=== PATIENT | female | born 1955 | race Two or more races ===

== ENCOUNTER → 2024-03-30 | Outpatient (CLI) | payer MEDICARE, MEDICAID, SELFPAY ==
--- NOTE | 2024-03-30 13:30 | XR_ITS ---
Examination: Breast ultrasound complete, bilateral Date and time of exam: March 30, 2024 1345 hours INDICATIONS: Personal history left breast cancer lumpectomy January 2021 Technique: Real-time grayscale ultrasonographic imaging bilateral breasts, including all 4 quadrants as well as nipple retroareolar and axillary regions. Findings: Sonographic images right breast 8:00 cyst 5 x 4 mm 9:00 cyst 5 x 2 mm No solid nodules Sonographic images left breast No cystic or solid mass IMPRESSION: BI-RADS Category 2: Benign findings
--- NOTE | 2024-03-30 14:30 | XR_ITS ---
Examination: Diagnostic digital mammography, bilateral Computer aided detection 3-D breast Tomosynthesis, bilateral Date and time of exam: March 30, 2024 1423 hours Compared to mammograms dating to February 06, 2020 INDICATIONS: History left lumpectomy 2020 Technique: Nonmagnified MLO, CC views of the breasts to been obtained, reconstructed from 3-D Tomosynthesis images. R2 computer aided detection program utilized for evaluation of suspicious masses and/or abnormal calcifications. 3-D Tomosynthesis images obtained. Findings: The breasts are heterogeneously dense, which may obscure small masses Scar formation upper left breast with focal asymmetry again noted No suspicious masses Impression: BI-RADS Category 2: Benign findings Recommend yearly follow-up mammography.
== END | disposition home or self-care (01) ==
PROVIDERS: Referring Provider Advanced Practice Midwife; Visit Provider Advanced Practice Midwife
DX: R92.323 Mammographic fibroglandular density, bilateral breasts (principal); N60.01 Solitary cyst of right breast; C50.912 Malignant neoplasm of unspecified site of left female breast
CPT/HCPCS: 76641; 77062; 77066; G0279

== ENCOUNTER 2025-01-16 17:40 | Emergency (ER) | payer OTHER, MEDICAID, SELFPAY ==
[2025-01-16 17:54] VITALS: BP 145/81; PULSE 82; RESP 18; TEMP 36.9; O2SAT 97; BMI 25.2
--- NOTE | 2025-01-16 18:03 | XR_ITS ---
EXAMINATION: PA chest single view TECHNIQUE: Upright PA chest single view Date and time: January 16, 2025, 1835 hours INDICATIONS: Chest pain today. FINDINGS: Normal heart size. The lungs are clear. The osseous structures are intact. IMPRESSION: No active disease.
--- NOTE | 2025-01-16 18:03 | EDRME_ITS ---
<Statement entered by Donna Reyes MD - 01/17/25 06:48> As co-signing physician, I was present and available for consult prn. I concur with the plan and care as documented by the midlevel provider. Rapid Medical Screening Exam RME Arrival date/time: 01/16/25 17:40 Chief Complaint: Shortness of Breath/Dyspnea Vital signs: Vital Signs Temperature 98.5 F 01/16/25 17:54 Pulse Rate 82 01/16/25 17:54 Respiratory Rate 18 01/16/25 17:54 Blood Pressure 145/81 H 01/16/25 17:54 Pulse Oximetry (%) 97 01/16/25 17:54 Oxygen Delivery Method Room Air 01/16/25 17:54 RME Narrative: Left-sided chest wall pain, shortness of breath that initiated at 1700 today. Hx breast CA 2020.
--- NOTE | 2025-01-16 18:03 | EKG_ITS ---
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
--- NOTE | 2025-01-16 18:17 | PD.EDSOB ---
ED SOB =RME/HPI General Chief Complaint: Shortness of Breath/Dyspnea Stated Complaint: L) SIDE PAIN, DIFFIULTY BREATHING Arrival date/time: 01/16/25 17:40 RME / HPI RME / HPI Narrative: Left-sided chest wall pain, shortness of breath that initiated at 1700 today. Hx breast CA 2020. ------- See MDM for Dr. Matthews's HPI documentation. Related Data Home Medications ?Medication ?Instructions ?Recorded ?Confirmed carvedilol 3.125 mg tablet 3.125 mg PO BID 05/31/20 01/21/21 losartan 50 mg-hydrochlorothiazide 1 tab PO QDAY 05/31/20 01/21/21 12.5 mg tablet omeprazole 20 mg capsule,delayed 20 mg PO QDAY 05/31/20 01/21/21 release albuterol sulfate 90 mcg/actuation 2 puff inhalation Q4H PRN 01/21/21 01/21/21 aerosol inhaler (Ventolin HFA) Shortness Of Breath Or Wheezing pravastatin 20 mg tablet 20 mg PO QDAY 01/21/21 01/21/21 Allergies Allergy/AdvReac Type Severity Reaction Status Date / Time No Known Allergies Allergy Verified 01/16/25 17:45 Course Orders Category Date Time Status EKG (ED ONLY) *Do not use* NOW Care 01/16/25 18:03 Active CXR [XR chest 1V] Stat Exams 01/16/25 18:03 Ordered EKG (ED Only) Stat Exams 01/16/25 18:03 Draft BNP [B-Type Natriuretic Peptide] Stat Lab 01/16/25 18:03 Ordered CBC Stat Lab 01/16/25 18:03 Ordered CMP [Comprehensive Metabolic Panel] Stat Lab 01/16/25 18:03 Ordered Troponin I Stat Lab 01/16/25 18:03 Ordered Vital Signs Vital signs: Vital Signs Temperature 98.5 F 01/16/25 17:54 Pulse Rate 82 01/16/25 17:54 Respiratory Rate 18 01/16/25 17:54 Blood Pressure 145/81 H 01/16/25 17:54 Pulse Oximetry (%) 97 01/16/25 17:54 Oxygen Delivery Method Room Air 01/16/25 17:54 Discharge Plan Prescriptions/Referrals Prescriptions/Med Rec: No Action carvedilol 3.125 mg Tablet 3.125 mg PO BID omeprazole 20 mg Capsule,Delayed Release(Dr/Ec) 20 mg PO QDAY losartan-hydrochlorothiazide 50-12.5 mg Tablet 1 tab PO QDAY pravastatin 20 mg Tablet 20 mg PO QDAY albuterol sulfate [Ventolin HFA] 90 mcg/actuation Hfa Aerosol Inhaler 2 puff INHALATION Q4H PRN (Reason: Shortness Of Breath Or Wheezing) Patient/Caregiver Discharge Instructions Print Language: Guyanese
--- NOTE | 2025-01-16 18:27 | PD.EDSOB ---
ED SOB =RME/HPI General Chief Complaint: Shortness of Breath/Dyspnea Stated Complaint: L) SIDE PAIN, DIFFIULTY BREATHING Time Seen by Provider: 01/16/25 18:29 Arrival date/time: 01/16/25 17:40 RME / HPI RME / HPI Narrative: Left-sided chest wall pain, shortness of breath that initiated at 1700 today. Hx breast CA 2020. ------- See MDM for Dr. Matthews's HPI documentation. Related Data Home Medications ?Medication ?Instructions ?Recorded ?Confirmed carvedilol 3.125 mg tablet 3.125 mg PO BID 05/31/20 01/21/21 losartan 50 mg-hydrochlorothiazide 1 tab PO QDAY 05/31/20 01/21/21 12.5 mg tablet omeprazole 20 mg capsule,delayed 20 mg PO QDAY 05/31/20 01/21/21 release albuterol sulfate 90 mcg/actuation 2 puff inhalation Q4H PRN 01/21/21 01/21/21 aerosol inhaler (Ventolin HFA) Shortness Of Breath Or Wheezing pravastatin 20 mg tablet 20 mg PO QDAY 01/21/21 01/21/21 Previous Rx's ?Medication ?Instructions ?Recorded acetaminophen 300 mg-codeine 30 mg 1 tab PO Q8H PRN pain #20 tabs 01/16/25 tablet lidocaine 5 % topical patch 1 patch topical QDAY PRN pain #30 01/16/25 (Lidoderm) ea Allergies Allergy/AdvReac Type Severity Reaction Status Date / Time No Known Allergies Allergy Verified 01/16/25 17:45 Review of Systems Review of Systems Systems Reviewed: All systems reviewed, normal except as documented Past Medical History Past Medical History NEUROLOGIC: Negative Neurological Disorders or Seizures CARDIAC: Positive Cardiac Disorders, Hypercholesterolemia (TAKES MED) and Hypertension (TAKES MED); Negative Congestive Heart Failure, Edema, Cellulitis or Varicose Veins RESPIRATORY: Positive Bronchitis (SEASONAL ALLERGY HAS INHALER); Negative Chronic Obstructive Pulmonary Disease (COPD), Tuberculosis or Sleep Apnea GASTROINTESTINAL: Positive Gastrointestinal Disorders (abdominal hernia), Diverticulitis and Gastroesophageal Reflux Disease (TAKES MED); Negative Hepatitis or Ulcer GENITOURINARY: Negative Renal Disease REPRODUCTIVE: Positive Breast Cancer (LEFT HAD BIOPSY) and Previous Pregnancies (X8); Negative Endometriosis, Pelvic Inflammatory Disease or Uterine Prolapse MUSCULOSKELETAL: Positive Musculoskeletal Disorders, Arthritis and Degenerative Disk Disease (right arm numbness associated DUE TO CHEMO) ENT: Positive Cataracts ENDOCRINE: Negative Endocrine Disorders, Diabetes Mellitus Type 1 or Diabetes Mellitus Type 2 HEMATOLOGIC: Negative Blood Disorders PSYCHO/SOCIAL: Positive Depression and Anxiety OTHER HISTORY: Positive Chemotherapy (DUE TO CA LEFT BREAST 12/19/11), Measles, Cancer and Breast Cancer (LEFT HAD BIOPSY); Negative Hospitalization, Autoimmune Disease, Shingles, Falls, Blood Transfusions, Blood Transfusion Reaction, Anesthesia Reactions, MRSA, VRSA, Vancomycin-Resistant Enterococci, Chicken Pox or Mumps Family History FAMILY HISTORY: Positive Family Respiratory Disorders (FATHER (COPD)) and Family Surgery (MOTHER); Negative Family Psychiatric Problems, Family Cardiac Disorders, Family Gastrointestinal Problems, Family Cancer or Family Anesthesia Reaction Surgical History SURGICAL: Positive Tonsillectomy, Hysterectomy and Tubal Ligation; Negative Pacemaker Social History SMOKING STATUS: Never smoker ED Exam Narrative Physical exam: See [facility] for Dr. Matthews's physical exam documentation. Course Course Course Narrative: CXR is ordered for determining the etiology of shortness of breath. Quality Measures none Orders Category Date Time Status EKG (ED ONLY) *Do not use* NOW Care 01/16/25 18:03 Completed Straight [In and Out Catheter] X1 Care 01/16/25 20:[address] chest abdomen pelvis wo Stat Exams 01/16/25 19:[address] head/brain wo con Stat Exams 01/16/25 19:30 Completed CXR [XR chest 1V] Stat Exams 01/16/25 18:03 Completed EKG (ED Only) Stat Exams 01/16/25 18:03 Draft XR ribs LT min 3V w CXR1V Stat Exams 01/16/25 18:31 Completed BNP [B-Type Natriuretic Peptide] Stat Lab 01/16/25 18:28 Completed Bilirubin,Direct Stat Lab 01/16/25 18:28 Completed CBC Stat Lab 01/16/25 18:28 Completed CMP [Comprehensive Metabolic Panel] Stat Lab 01/16/25 18:28 Completed D-Dimer Stat Lab 01/16/25 18:28 Completed Magnesium Stat Lab 01/16/25 18:28 Completed TSH [Thyroid Stimulating Hormone] Stat Lab 01/16/25 18:28 Completed Troponin I Stat Lab 01/16/25 18:28 Completed UA, C/S IF [Urinalysis, C/S if Indicated] Stat Lab 01/16/25 20:43 Completed ACETAMINOPHEN w/COD 300-30 [Tylenol w/Cod #3] Med 01/16/25 19:29 Discontinued 1 tab PO X1 ONE Vital Signs Vital signs: Vital Signs Temperature 98.5 F 01/16/25 17:54 Pulse Rate 82 01/16/25 17:54 Respiratory Rate 18 01/16/25 17:54 Blood Pressure 145/81 H 01/16/25 17:54 Pulse Oximetry (%) 97 01/16/25 17:54 Oxygen Delivery Method Room Air 01/16/25 17:54 Shortness of Breath / Dyspnea MDM Narrative MDM Narrative:: This section includes all my notes and documentations, including HPI, PE, and ED course. Carlos Eduardo Matthews MD HPI: 69yo female with history of breast CA, HTN here with left-sided rib cage pain for the past few days. Worse with breathing. Concerned because she had breast cancer, treated several years ago. Reports fatigue and malaise. No injuries. No other complaints. ROS: All negative except as documented in HPI. Physical Exam: General: Alert and oriented. No acute distress when remaining still. Eyes: Conjunctivae and lids clear. ENT: No nasal congestion. Neck: Supple. Chest: Palpation of the left rib cage, anteriorly and laterally, reproduces her pain. Heart: RRR. Lungs: No respiratory distress. Good air movement. No rhonchi, wheezing, rales. Abdomen: Soft and nontender. Normal bowel sounds. No distension. No rebound or guarding. Back: No CVA tenderness. Skin: Warm and dry. Neuro: Alert and oriented X 3. I reviewed all diagnostic test results. My interpretation of the EKG is sinus rhythm with nonspecific ST-T changes. My interpretation of the chest x-ray is NAD. My interpretation of the left rib x-ray is NAD. My review of the CT head report is NAD. My review of the CT chest abdomen pelvis report is NAD. Blood tests and urine tests are unremarkable. At this point, diagnoses include: Musculoskeletal pain Treatment here included: Tylenol with Codeine Significant improvement noted. Recommended supportive care. Based on my best medical judgment, made decision no further evaluation or treatment indicated at this time. Patient understands and agrees to the discharge instructions customized and printed, see below. Discharge instructions from Dr. Matthews: 1. After extensive evaluation, there is no life-threatening condition. Such as stroke or brain tumor or cancer or heart attack or pulmonary embolism (blood clots in your lungs) or pneumothorax (collapsed lung). 2. Your pain is originating from the chest wall and not from an internal organ. The chest wall has many joints and muscles between the ribs, so sprains and strains are common. 3. Apply ice or heat if helpful. Tylenol with codeine and lidocaine patches for pain. 4. See a private doctor on 01/18/2025 for recheck and further care. To make sure there is no serious underlying heart condition, ask to help you get more tests for your heart that cannot be done here in the ER. Such as Holter Monitor (cardiac monitoring at home from a day to even a month), heart stress test (on treadmill or with medication), echocardiogram (imaging of your heart structures), heart catherization (checking for blockages in your heart arteries), and a referral to see a Marketing Database Consultant. Ask to review all test results and official radiology reports, to make sure you receive all necessary follow-ups and monitoring. 5. Seek immediate medical care with worsening or with any concerns. Carlos Eduardo Matthews MD Patient data External records reviewed:: [facility] previous records (Per chart review, patient has no previous ED visits or admissions to this facility.) Clinical information provided by:: patient Social determinants that could affect healthcare access:: none Patient has the following chronic illnesses:: breast CA, HTN How is presenting disease/condition affected by chronic disease/condition?: uneffected by Evaluation data The following diagnostics were reviewed and interpreted by me:: lab results, radiology exam(s) and EKG tracing(s) (My interpretation of the EKG is: Sinus rhythm (77 bpm) with nonspecific ST-T changes. Carlos Eduardo Matthews MD) Lab and/or radiology exams considered but not ordered:: none Interpretation Summary: I reviewed all diagnostic test results. My interpretation of the EKG is sinus rhythm with nonspecific ST-T changes. My interpretation of the chest x-ray is NAD. My interpretation of the left rib x-ray is NAD. My review of the CT head report is NAD. My review of the CT chest abdomen pelvis report is NAD. Blood tests and urine tests are unremarkable. Medications / Prescriptions Medications or Prescriptions considered but not ordered:: none Medication administrations:: Medication Administration History Discontinued Medications Acetaminophen/Codeine Phosphate (Acetaminophen W/Cod 300-30 Tablet) 1 tab PO X1 ONE Stop: 01/16/25 19:30 Last Admin: 01/16/25 20:01 Dose: 1 tab Documented By: NEVAEH Tylenol with Codeine Consultations Consultation(s) initiated? (list below): No Diagnosis Shortness of Breath Differential Diagnosis: congestive heart failure, community acquired pneumonia and asthma with exacerbation Most likely diagnosis given after review of the tests above:: Musculoskeletal pain Admission Indicated Admission indicated?: not indicated Explain why admission is indicated or not indicated:: With significant improvement and no condition needing emergent intervention, there was no indication for admission. Admission Request Was there a request for admission?: No Disposition Plan Disposition Plan: Discharge Discharge Attestation Discharge Attestation: The patient and all family members were given an opportunity to ask questions and understood the discharge instructions. Discharge instructions specifically effects, indications for sooner follow up or return to the emergency department, and the expected course of current diagnosis. Patient condition: Stable Discharge Plan Plan Patient Disposition: HOME (Self Care) Prescriptions/Referrals Prescriptions/Med Rec: New acetaminophen-codeine 300-30 mg tablet 1 tab PO Q8H MDD 6 PRN (Reason: pain) Qty: 20 0RF lidocaine [Lidoderm] 5 % adhesive patch,medicated 1 patch topical QDAY PRN (Reason: pain) Qty: 30 0RF Rx Instructions: leave on most painful area for up to 12 hrs No Action carvedilol 3.125 mg Tablet 3.125 mg PO BID omeprazole 20 mg Capsule,Delayed Release(Dr/Ec) 20 mg PO QDAY losartan-hydrochlorothiazide 50-12.5 mg Tablet 1 tab PO QDAY pravastatin 20 mg Tablet 20 mg PO QDAY albuterol sulfate [Ventolin HFA] 90 mcg/actuation Hfa Aerosol Inhaler 2 puff INHALATION Q4H PRN (Reason: Shortness Of Breath Or Wheezing) Referrals: Joel Parham MD [Primary Care Provider, Family Practice] - In 1 week Problem List Clinical Impression: Musculoskeletal pain Patient/Caregiver Discharge Instructions Discharge Activity: activity as tolerated Education Materials: ED Chest Wall Pain, Costochondritis Additional Instructions: Discharge instructions from Dr. Matthews: 1. After extensive evaluation, there is no life-threatening condition.? Such as stroke or brain tumor or cancer or heart attack or pulmonary embolism (blood clots in your lungs) or pneumothorax (collapsed lung). 2. Your pain is originating from the chest wall and not from an internal organ.? The chest wall has many joints and muscles between the ribs, so sprains and strains are common.?? 3. Apply ice or heat if helpful.? Tylenol with codeine and lidocaine patches for pain. 4. See a private doctor on 01/18/2025 for recheck and further care. To make sure there is no serious underlying heart condition, ask to help you get more tests for your heart that cannot be done here in the ER.? Such as Holter Monitor (cardiac monitoring at home from a day to even a month), heart stress test (on treadmill or with medication), echocardiogram (imaging of your heart structures), heart catherization (checking for blockages in your heart arteries), and a referral to see a Marketing Database Consultant.? Ask to review all test results and official radiology reports, to make sure you receive all necessary follow-ups and monitoring. 5. Seek immediate medical care with worsening or with any concerns.?? Instrucciones de yasmine del Dr. Matthews: 1. Tras cynthia evaluaci?n exhaustiva, no se observa ninguna afecci?n potencialmente mortal, samantha un derrame cerebral, un tumor cerebral, c?ncer, un infarto de miocardio, cynthia embolia pulmonar (co?gulos de benita en los pulmones) o un neumot?rax (colapso pulmonar). 2. El dolor se origina en la pared tor?cica y no en un ?rgano interno. La pared tor?cica tiene muchas articulaciones y m?sculos entre las costillas, por lo que los esguinces y las distensiones son comunes. 3. Aplique hielo o calor si le resulta ?til. Parches de Tylenol con code?na y lidoca?na para el dolor. 4. Consulte con un m?dico privado el 12/20/2024 para cynthia nueva revisi?n y atenci?n adicional. Para asegurarse de que no haya cynthia afecci?n card?joselito subyacente grave, solicite ayuda para realizar m?s pruebas card?acas que no se pueden realizar aqu? en urgencias. [place] un monitor Holter (monitorizaci?n card?joselito en casa desde un d?a hasta un mes), cynthia prueba de esfuerzo card?aco (en cinta o con medicaci?n), un ecocardiograma (im?genes de las estructuras card?acas), un cateterismo card?aco (para detectar obstrucciones en las arterias card?acas) y cynthia derivaci?n a un cardi?logo. Solicite la revisi?n de todos los resultados de las pruebas y los informes radiol?gicos oficiales para asegurarse de recibir todos los seguimientos y la monitorizaci?n necesarios. 5. Busque atenci?n m?dica inmediata si salamanca estado empeora o tiene alguna inquietud. Print Language: Hungarian Stand Alone Forms: Marguerite Award Info., Patient Portal Info Letter
--- NOTE | 2025-01-16 18:31 | XR_ITS ---
EXAMINATION: Left rib series 4 views TECHNIQUE: AP, RPO, LPO, coned AP lower ribs total 4 views Date and time: January 16, 2025, 190 hours INDICATIONS: Left anterior chest and rib pain today. FINDINGS: No pneumothorax. No acute rib fractures No hemothorax IMPRESSION: No pneumothorax pulmonary contusion or hemothorax No acute rib fractures
[2025-01-16 18:53] LABS: Basophils # (Auto) 0.1 Thou/mm3 (0.0-0.2); Basophils % (Auto) 1 % (0-2.5); Eosinophils # (Auto) 0.1 Thou/mm3 (0.0-0.5); Eosinophils % (Auto) 1 % (0-10); Hematocrit 37.3 % (36.0-46.0); Hemoglobin 12.4 g/dL (12.0-16.0); Immature Granulocytes Auto 0.05 Thou/mm3 (0.00-0.00); Lymphocytes # (Auto) 2.1 Thou/mm3 (1.0-4.8); Lymphocytes % (Auto) 19 % (10-50); Mean Corpuscular HGB Conc 33.2 g/dl (31.0-37.0); Mean Corpuscular Hemoglobin 30.0 pg (25.0-35.0); Mean Corpuscular Volume 90 fL (80-100); Monocytes # (Auto) 0.8 Thou/mm3 (0.0-0.8); Monocytes % (Auto) 7 % (0-12); Neutrophils # (Auto) 8.1 Thou/mm3 (1.8-7.7); Neutrophils % (Auto) 72 % (37-80); Nucleated Red Blood Cell # 0.00 Thou/mm3 (0.00-0.00); Nucleated Red Blood Cell % 0 /100 WBC (0); Platelet Count 357 Thou/mm3 (140-440); RDW Standard Deviation 42.6 fL (36.4-46.3); Red Blood Count 4.14 Miln/mm3 (4.00-5.20); White Blood Count 11.2 Thou/mm3 (3.6-11.0)
[2025-01-16 19:07] LABS: D-Dimer 606 ng/mL (<600)
[2025-01-16 19:14] LABS: Alanine Aminotransferase 21 U/L (10-49); Albumin, Serum 5.2 gm/dL (3.4-4.8); Albumin/Globulin Ratio 1.7 (1.2-2.2); Alkaline Phosphatase 96 U/L (46-116); Anion Gap 11 (7-16); Aspartate Amino Transferase 28 U/L (0-34); BUN/Creatinine Ratio 12 Ratio (12-20); Bilirubin,Direct 0.2 mg/dL (0.0-0.3); Bilirubin,Total 0.6 mg/dL (0.3-1.2); Blood Urea Nitrogen 7 mg/dL (9-23); Calcium 10.4 mg/dL (8.3-10.6); Calcium (Corrected) 10.4 mg/dL (8.5-10.1); Carbon Dioxide 27.4 mMol/L (20.0-31.0); Chloride 103 mMol/L (98-107); Creatinine (Component) 0.6 mg/dL (0.6-1.3); Estimated Creatinine Clearance 73.9 mL/min (>60); Globulin 3.1 gm/dL (2.3-3.5); Glucose 109 mg/dL (74-106); Magnesium 1.9 mg/dL (1.6-2.6); Osmolality,Calculated 280 (275-295); Potassium 3.7 mMol/L (3.4-5.1); Sodium 141 mMol/L (136-145); Thyroid Stimulating Hormone 0.70 uIU/mL (0.55-4.78); Total Protein 8.3 gm/dL (5.7-8.2); Troponin I < 0.020 ng/mL (0.0-0.045); eGFR > 60 See Note
[2025-01-16 19:17] LABS: B-Type Natriuretic Peptide 52 pg/mL (0-100)
--- NOTE | 2025-01-16 19:29 | XR_ITS ---
Examination: CT chest, without intravenous contrast. CT abdomen, without intravenous contrast. CT pelvis, without intravenous contrast. 2-D sagittal and coronal reconstructions. 3-D reconstructions. Date and time of exam: January 16, 2025, 1954 hours INDICATIONS: Diagnosis breast cancer, onset left-sided chest and abdominal pain today CTDI vol (mgy) 8.91 DLP (MGycm) 593 Technique: Multiple CT images, 3.0 mm slice thickness, obtained chest, abdomen, pelvis, with the high-resolution 64 slice scanner.. Sagittal and coronal 2-D reconstructions are obtained. 3-D reconstructions Low dose protocols were performed. One or more of the following dose reduction techniques were used; automated exposure control, adjustment of the mA and/or KV according to patient size, use of iterative reconstruction technique. Findings: Right thyromegaly with 25 mm and 18 mm right thyroid nodules No thoracic aortic aneurysm dilatation Pulmonary artery segments are not enlarged. No paratracheal tracheobronchial or bronchopulmonary adenopathy. No discrete breast or chest wall mass No pathologic axillary lymphadenopathy No pneumonia, pulmonary edema, pleural disease or pulmonary nodules Trace pericardial effusion No focal liver or splenic lesions No gallstones No pancreatic or adrenal mass No renal or ureteral calculi Aorta normal size No abdominal or pelvic lymphadenopathy Tiny fat-containing umbilical hernia Normal appendix No bowel obstruction Contracted urinary bladder Atrophic retroverted uterus Moderate osteopenia with advanced disc narrowing L4-L5 and grade 1 spondylolisthesis L5 on S1 No osteoblastic or osteolytic metastatic disease IMPRESSION: Right thyromegaly with large right thyroid nodules No mediastinal lymphadenopathy No pneumonia, pulmonary edema, pleural disease or pulmonary nodules No metastatic disease in the abdomen or pelvis
--- NOTE | 2025-01-16 19:30 | XR_ITS ---
Examination: CT brain head without contrast. 2-D sagittal coronal reconstructions Date and time of exam: January 16, 2025, 195 hours INDICATIONS: headache weakness dizziness today, diagnosis of breast cancer 2020 CTDI: vol (mGy): 45.5 DLP: (mGycm): 881 Technique: Multiple CT axial sections of the brain have been obtained, 5 mm slice thickness. Contrast has not been administered. 2-D sagittal, coronal reconstructions have been obtained Low dose protocols were performed. One or more of the following dose reduction techniques were used; automated exposure control, adjustment of the mA and/or KV according to patient size, use of iterative reconstruction technique. Findings: No significant ventricular enlargement. Intra-axial or extra-axial hemorrhage density is not seen. No mass effect or midline shift Basal cisterns are not remarkable. Fourth ventricle is midline. Cranial vault intact. Impression: Negative for acute hemorrhage, mass effect or midline shift Advise clinical correlation and follow-up accordingly
[2025-01-16] MEDS: ACETAMINOPHEN w/COD 300-30 TABLET 1 TAB PO (20:01)
[2025-01-16 20:50] LABS: Collection Type, Urine Clean Catch; WBC,Urine 0 /hpf (0-5)
[2025-01-16 21:03] LABS: Bilirubin,Urine Negative (Negative); Blood,Urine Negative (Negative); Clarity,Urine Clear (Clear/Hazy); Color,Urine Colorless (Lt Yel-Yel); Culture Indicated,Urine Not Indicated; Glucose, Urine Negative (Negative); Ketones,Urine Negative (Negative); Leukocyte Esterase,Urine Negative (Negative); Nitrite,Urine Negative (Negative); PH,Urine 7.0 (5.0-7.0); Protein,Urine Negative (Neg - Trace); RBC,Urine < 1 /hpf (0-3); Specific Gravity,Urine 1.007 (1.001-1.035); Squamous Epithelial Cell,Urine < 1 /hpf (0-5); Urobilinogen,Urine Negative mg/dL (0.0-1.0)
== END 2025-01-16 21:36 | disposition home or self-care (01) ==
PROVIDERS: Physician Assistant; Emergency Provider Emergency Medicine; PCP Family Medicine
DX: M79.18 Myalgia, other site (principal); I10 Essential (primary) hypertension; R07.9 Chest pain, unspecified; R51.9 Headache, unspecified; R53.1 Weakness; R42 Dizziness and giddiness; R10.9 Unspecified abdominal pain
CPT/HCPCS: 36415; 70450; 71045; 71101; 71250; 74176; 80053; 81001; 82248; 83735; 83880; 84443; 84484; 85025; 85379; 93005; 99284; A9270